=== PATIENT | male | born 1955 ===

== ENCOUNTER 2018-01-24 11:54 | Emergency (ER) | payer MEDICARE, OTHER ==
[~2018-01-24] VITALS: Ht 175.3 cm; Wt 70.8 kg
--- NOTE | 2018-01-24 13:46 | Diagnostic Imaging Report ---
PROCEDURE:L-SPINE COMPLETE COMPARISON:None. INDICATIONS:BACK PAIN, RIGHT HIP PAIN, STATUS POST SURGERY FINDINGS: There are 5 [id number] lumbar-type vertebral bodies. No acute, displaced fracture or subluxation. No pars interarticularis defects on the oblique radiographs. Mild multilevel disc space narrowing and marginal osteophytosis extending from L2-3 through L5-S1. Mild bilateral facet arthropathy at L5-S1. Sacroiliac joints are intact. The sacral foramina are intact superiorly. Inferiorly, the sacral body and coccyx are obscured by rectal gas and stool. Extensive atherosclerotic vascular calcifications. Bilateral common iliac and right external iliac arterial stents. CONCLUSION: No acute osseous abnormality. Mild multilevel degenerative disc disease and degenerative facet arthropathy worst at the lumbosacral junction. Dictated by: Telly Gaona M.D. on 01/24/2018 at 13:46 Electronically approved by: Telly Gaona M.D. on 01/24/2018 at 13:46
[2018-01-24] MEDS: KETOROLAC TROMETHAMINE 30 MG/ML VIAL IV STA (14:01)
== END 2018-01-24 21:15 ==
LOC: ER 11:54
DX: G89.18 Other acute postprocedural pain (principal); M54.30 Sciatica, unspecified side
CPT/HCPCS: 72110; 99284; J1885